=== PATIENT | male | born 1995 | race African-American/Black ===

== ENCOUNTER 2022-06-20 22:26 | Emergency (ER) | payer OTHER, SELFPAY ==
--- NOTE | ~2022-06-20 | XR_ITS ---
XR humerus LT 06/20/2022 23:06 Indication: Left arm pain after fall Procedure: 2 views left humerus Comparison: No prior studies for comparison. Findings: There is an oblique displaced distal diaphyseal fracture of the left humerus with internal rotation and varus angulation. There is moderate soft tissue swelling. No other fracture. No foreign bodies. Impression: 1: Oblique displaced distal diaphyseal fracture left humerus with internal rotation and varus angulat ion. Reviewed, dictated and finalized at location [facility]. [employer] Impression: 1: Oblique displaced distal diaphyseal fracture left humerus with internal rota tion and varus angulation.
--- NOTE | 2022-06-20 22:45 | PC.NURSE ---
pt c/o l arm pain after playing football. states he collided with another player and he fell. l arm in sling. radial pulse present. cap refill wnl. denies any numbness/tingling. denies any hi or loc.
[2022-06-20] MEDS: ONDANSETRON INJ 4 MG/2 ML VIAL IV PUSH (22:49)
[2022-06-20] MEDS: fentaNYL CITRATE INJ (*CRX) 100 MCG/2 ML VIAL 50 MCG IV PUSH (22:49)
--- NOTE | 2022-06-20 23:12 | ED.UPPEXIN ---
HPI - Extremity Injury (Upper) General Chief Complaint: Extremity Injury, Upper Stated Complaint: arm injry Time Seen by Provider: 06/20/22 23:07 History of Present Illness HPI narrative: This is a 27-year-old male presenting the emergency department with severe left arm pain after a football injury. He states he was jumping to catch a ball, when he was struck resulting in a pop in the left arm and severe left arm pain. His pain is rated 10 out of 10 and does not radiate. He denies any other injury or loss of consciousness Related Data Allergies Allergy/AdvReac Type Severity Reaction Status Date / Time No Known Allergies Allergy Verified 06/20/22 22:52 Review of Systems Review of Systems: CONSTITUTIONAL: Denies fever, chills, or sweats. CARDIOVASCULAR: Denies chest pain, palpitations, or edema. RESPIRATORY: Denies cough or dyspnea. GASTROINTESTINAL: Denies abdominal pain, nausea, vomiting, or diarrhea. SKIN: Denies rash or itching. MUSCULOSKELETAL: Left arm pain denies back pain, joint pain, or myalgia. NEUROLOGIC: Denies headache, numbness, dizziness, or weakness. PSYCHIATRIC: Denies anxiety or depression. [facility] Past Medical History Medical History Shoulder fracture, left Social History Social History (Updated 06/20/22 @ 23:14 by Sylvester Marte MD) Smoking status: Never smoker Alcohol intake: current Substance use: current Substance use type: marijuana Exam Narrative: GENERAL: Well-developed, well-nourished, in moderate distress due to the pain HEAD: Normocephalic, atraumatic. EYES: PERRLA and EOMI. ENT: Nares clear, no rhinorrhea or epistaxis. Mucous membranes moist. Oropharynx without tonsillar hypertrophy exudate or other lesions. NECK: Supple. No adenopathy or masses. No carotid bruits or JVD CHEST: Clear to auscultation. No respiratory distress. No wheezes rales or rhonchi, 2+ pulses throughout HEART: Regular rate and rhythm. No murmur heard. Normal peripheral pulses. ABDOMEN: Soft, nontender, nondistended, normal active bowel sounds. EXTREMITIES: Swelling and deformity of the left bicep compared to the right, normal range of motion of the wrist and fingers, sensation intact, normal range of motion. SKIN: Warm, dry, no rash. NEURO: No focal deficits. Alert and oriented x3. PSYCH: Normal mood and affect. Course Course Emergency Course: 23:15 - Reviewed x-ray, the left humerus is fractured and displaced. Exam demonstrates concerning swelling of the bicep, though pulses are intact. Discussed patient with orthopedic surgeon Dr. Marr who recommends transfer. 00:12 - Discussed patient with [facility] orthopedic surgery chief, Dr. Hutchinson who agrees to evaluate the patient in the ED. 00:30 - Discussed recommendations for transfer with the patient who wishes to consider and give a decision later. 01:24 - Discussed patient with [facility] ED physician, Dr. Lockwood, who accepts transfer. Transfer Transfered to: [facility] Hospital Transportation: BLS Transfer rationale: Need for Orthopedic surgery evaluation Accepting physician: Dr. Hutchinson (Orthopedic surgery) MDM - Extremity Injury (Upper) MDM Narrative Medical decision making narrative: Plan imaging, pain control, reassess Differential Diagnosis Differential diagnosis: Likely other (Humerus fracture, elbow fracture, open fracture, dislocation, neurovascular compromise, other) Discharge Plan Discharge Clinical Impression: Displaced fracture of left humerus Patient Disposition: Acute Care Hospital Condition: Stable Follow-up/Referrals: PHYSICIAN NOT ON STAFF,NONSTAFF [Primary Care Provider] - Time of Disposition: 01:26
[2022-06-20] MEDS: HYDROmorphone HCL INJ (*CRX) 1 MG/ML SYR IV PUSH (23:18)
[2022-06-20 23:24] VITALS: BP 121/78; PULSE 73; RESP 16; O2SAT 100
[2022-06-21] MEDS: HYDROmorphone HCL INJ (*CRX) 1 MG/ML SYR IV PUSH ×2 (00:54→02:19)
[2022-06-21 02:30] VITALS: BP 135/92; PULSE 59; RESP 16; O2SAT 100
--- NOTE | 2022-06-21 02:32 | PC.NURSE ---
Report called to Harvey KWAN at [facility]
== END 2022-06-21 02:35 | disposition short-term general hospital (02) ==
PROVIDERS: Emergency Provider Preventive Medicine Aerospace Medicine
DX: S49.192A Other physeal fracture of lower end of humerus, left arm, initial encounter for closed fracture (principal); W03.XXXA Other fall on same level due to collision with another person, initial encounter; Y93.62 Activity, american flag or touch football
CPT/HCPCS: 73060; 96374; 96375; 96376; 99285; A4565; J1170; J2405; J3010